=== PATIENT | female | born 1995 | race African-American/Black ===

== ENCOUNTER 2018-09-15 22:46 | Emergency (ER) | payer MEDICAID ==
[~2018-09-15] VITALS: Ht 170.2 cm; Wt 66.0 kg
[2018-09-15 22:59] VITALS: BP 118/97
== END 2018-09-16 02:41 | disposition left against medical advice (07) ==
LOC: ER 22:46
DX: R10.84 Generalized abdominal pain (principal); Z53.21 Procedure and treatment not carried out due to patient leaving prior to being seen by health care provider